=== PATIENT | female | born 1995 | race Caucasian/White ===

== ENCOUNTER → 2017-07-12 | Outpatient (CLI) | payer MEDICAID ==
--- NOTE | 2017-07-12 13:33 | MR ---
EXAMINATION TYPE: MR brain wo con DATE OF EXAM: 07/12/2017 11:42 AM COMPARISON: NONE HISTORY: Headache Multiplanar and multispin-echo imaging of the brain was performed . The ventricles, basal cisterns and sulci overlying the cerebral convexities are within normal limits. There is no evidence for midline shift or mass effect. Acute intracranial hemorrhage or extra-axial collection is not evident. The brain parenchyma reveals no abnormal increased signal. No acute edema is identified. The paranasal sinuses and mastoid air cells are well-aerated. IMPRESSION: Unremarkable MRI of the brain.
== END | disposition home or self-care (01) ==
LOC: RADMRIMAIN 11:01
PROVIDERS: ATTEND Nurse Practitioner Women's Health
DX: R55 Syncope and collapse (principal); R51 Headache
CPT/HCPCS: 70551

== ENCOUNTER → 2017-10-15 | Outpatient (CLI) | payer MEDICAID ==
--- NOTE | 2017-10-15 15:55 | US ---
EXAMINATION TYPE: US transvaginal DATE OF EXAM: 10/15/2017 COMPARISON: NONE CLINICAL HISTORY: R10.2 Female Pelvic Pain. Pelvic cramping during menses, history of ovarian cysts TECHNIQUE: Transvaginal (TV). Date of LMP: 3 weeks ago EXAM MEASUREMENTS: Uterus: 6.7 x 3.0 x 4.2 cm Endometrial Stripe: 0.2 cm Right Ovary: 2.0 x 1.3 x 1.2 cm Left Ovary: 2.3 x 1.5 x 1.1 cm 1. Uterus: Anteverted wnl 2. Endometrium: wnl 3. Right Ovary: follicles noted 4. Left Ovary: follicles noted 5. Bilateral Adnexa: minimal amount of free fluid left adnexa 6. Posterior cul-de-sac: small amount of free fluid IMPRESSION: 1. Minimal free fluid within the left adnexa and cul-de-sac.
== END | disposition home or self-care (01) ==
LOC: RADUSWWP 10:45
PROVIDERS: ATTEND Family Medicine
DX: R10.2 Pelvic and perineal pain (principal)
CPT/HCPCS: 76830

== ENCOUNTER → 2021-09-07 | Outpatient (CLI) | payer BC ==
--- NOTE | 2021-09-07 07:55 | US ---
EXAMINATION TYPE: US abdomen complete DATE OF EXAM: 09/07/2021 COMPARISON: NONE CLINICAL HISTORY: R11.0 Nausea K21.9 GERD R19.5 Loose Stool. pain EXAM MEASUREMENTS: Liver Length: 13.1 cm Gallbladder Wall: .2 cm CBD: .4 cm Spleen: 8.1 cm Right Kidney: 8.8 x 3.4 x 5.2 cm Left Kidney: 9.0 x 4.4 x 3.3 cm Pancreas: wnl Liver: wnl Gallbladder: wnl Evidence for sonographic Davies's sign: No CBD: wnl Spleen: wnl Right Kidney: wnl Left Kidney: wnl Upper IVC: wnl Abd Aorta: wnl The liver is homogenous. The intrahepatic portion of the IVC and proximal abdominal aorta are within normal limits. There is no evidence of cholelithiasis. Common bile duct is unremarkable. The visu alized portions of the pancreas are homogenous. The spleen is unremarkable. Kidneys are symmetric a nd free of hydronephrosis. No renal lesions are seen. IMPRESSION: No distinct abnormality appreciated.
== END | disposition home or self-care (01) ==
LOC: RADUSWWP 07:05
PROVIDERS: ATTEND Family Medicine
DX: R11.0 Nausea (principal); R19.5 Other fecal abnormalities
CPT/HCPCS: 76700